=== PATIENT | female | born 1935 | race Caucasian/White ===

== ENCOUNTER 2016-07-16 09:36 | Outpatient (CLI) | payer MEDICARE | END 2016-07-16 09:37 | disposition home or self-care (01) | DX: Z12.31 Encounter for screening mammogram for malignant neoplasm of breast (principal) ==

== ENCOUNTER 2017-01-04 11:59 | Outpatient (CLI) | payer MEDICARE ==
--- NOTE | 2017-01-04 17:39 | CT Report ---
CT BRAIN WITHOUT CONTRAST: 01/04/2017 CLINICAL INDICATION: Dementia. Axial CT images of the brain were obtained without intravenous contrast. In accordance with CT protocol optimization, one or more of the following dose reduction techniques w ere utilized for this exam: automated exposure control, adjustment of mA and/or KV based on patient size, or use of iterative reconstructive technique. No previous CT is available for comparison. The ventricles and sulci demonstrate mild symmetric enlargement, compatible with atrophy. The basila r cisterns are patent. There is no evidence of hemorrhage, mass effect, or midline shift. The visua lized orbital contents and paranasal sinuses are unremarkable. IMPRESSION: MILD ATROPHY. NO EVIDENCE OF HEMORRHAGE OR MASS EFFECT. JOB #: [id number] EXT JOB #:[id number]
== END 2017-01-04 12:00 | disposition home or self-care (01) ==
LOC: DI 11:59
PROVIDERS: ATTEND Internal Medicine
DX: G31.9 Degenerative disease of nervous system, unspecified (principal); F03.90 Unspecified dementia, unspecified severity, without behavioral disturbance, psychotic disturbance, mood disturbance, and anxiety
CPT/HCPCS: 70450

== ENCOUNTER 2017-01-07 15:07 | Outpatient (CLI) | payer MEDICARE ==
[2017-01-07 16:23] LABS: THYROID STIMULATING HORMONE 2.63 uIU/mL (0.34-5.60)
[2017-01-07 16:34] LABS: FOLATE 5.82 ng/mL (5.90 - >24.8)
[2017-01-09 20:02] LABS: TREPONEMA AB IGG NEGATIVE
[2017-01-10 14:21] LABS: HOMOCYSTEINE 19.5 umol/L (<10.4)
== END 2017-01-07 15:08 | disposition home or self-care (01) ==
LOC: LAB 15:07
PROVIDERS: ATTEND Internal Medicine
DX: F03.90 Unspecified dementia, unspecified severity, without behavioral disturbance, psychotic disturbance, mood disturbance, and anxiety (principal)
CPT/HCPCS: 36415; 82607; 82746; 83090; 83921; 84443; 86780

== ENCOUNTER 2018-04-19 13:30 | Outpatient (CLI) | payer MEDICARE | END 2018-04-19 13:31 | disposition critical access hospital (66) | LOC: EMS 13:30 | PROVIDERS: ATTEND Surgery | DX: R41.82 Altered mental status, unspecified (principal) | CPT/HCPCS: A0425; A0433 ==

== ENCOUNTER 2018-04-19 13:57 | Emergency (ER) | payer MEDICARE ==
[2018-04-19] MEDS ORDERED: SODIUM CHLORIDE 0.9% 1,000 ML IV ONE ×2 (14:09→16:21)
[2018-04-19] MEDS ORDERED: IOVERSOL 320 100 ML VIAL IVP ONE ×2 (14:25→14:47)
--- NOTE | 2018-04-19 14:31 | XRAY Report ---
Reason: chest pain Procedure Date: 04/19/2018 Accession Number: [id number] / [id number] Procedure: XR - Chest 1 View X-Ray CPT Code: 31334 FULL RESULT: EXAM: CHEST RADIOGRAPHY EXAM DATE: 04/19/2018 02:09 PM. CLINICAL HISTORY: Chest pain. COMPARISON: None. TECHNIQUE: 1 view. FINDINGS: Lungs/Pleura: There is a mild linear opacity in the retrocardiac left lower lobe. There are several small scattered nodular opacities in the lateral right midlung. There is no consolidation. No pulmonary edema or pneumothorax. Mediastinum: The heart size is normal. The tip of the endotracheal tube is 5 cm above the stephanie. There is mild aortic arch atherosclerotic calcification. Other: None. IMPRESSION: 1. Endotracheal tube tip 5 cm above stephanie. No pneumothorax. 2. Mild nodular densities lateral right midlung. Differential diagnosis includes old granulomatous disease, bronchopneumonia or bronchiolitis, not excluding neoplasm. Consider follow-up imaging and/or comparison with previous chest x-rays to evaluate stability or persistence. RADIA
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
[2018-04-19 14:52] LABS: BASOPHILS % (AUTO) 0.1 %; LYMPHOCYTES # (AUTO) 0.3 10^3/uL (1.5-3.5); LYMPHOCYTES % (AUTO) 2.3 %; MEAN CORPUSCULAR HEMOGLOBIN 32.6 pg (27.0-31.0); MEAN CORPUSCULAR HGB CONC 33.7 g/dL (32.0-36.0); MEAN CORPUSCULAR VOLUME 96.8 fL (81.0-99.0); MONOCYTES # (AUTO) 0.8 10^3/uL (0.0-1.0); MONOCYTES % (AUTO) 6.9 %; NEUTROPHILS % (AUTO) 90.7 %; PLT - PLATELET COUNT 313 10^3/uL (130-450); RED BLOOD COUNT 3.68 10^6/uL (4.20-5.40); RED CELL DISTRIBUTION WIDTH 13.4 % (12.0-15.0); WHITE BLOOD COUNT 12.1 x10^3/uL (4.8-10.8)
--- NOTE | 2018-04-19 14:55 | CT Report ---
Reason: trauma Procedure Date: 04/19/2018 Accession Number: [id number] / [id number] Procedure: CT - Cervical Spine W/O CPT Code: FULL RESULT: EXAM: CT CERVICAL SPINE WITHOUT CONTRAST DATE: 04/19/2018 02:17 PM. HISTORY: Trauma, pain. COMPARISONS: HEAD W/O 01/04/2017 12:11 PM. TECHNIQUE: Thin-section axial images were acquired of the cervical spine without contrast. Post-processing: Coronal and sagittal reformats. Other: None. In accordance with CT protocol optimization, one or more of the following dose reduction techniques were utilized for this exam: automated exposure control, adjustment of mA and/or KV based on patient size, or use of iterative reconstructive technique. FINDINGS: Alignment: No scoliosis or spondylolisthesis. Bones: No fracture or bone lesion. Interspace Levels/Facets: Disk space narrowing at the C4-C5, C5-C6, and C6-C7. Other disk spaces preserved. Moderate generalized degenerative changes. Musculature: Unremarkable. Other: No prevertebral soft tissue swelling. Endotracheal tube in place. Calcified and noncalcified small granulomata in left apex. Otherwise clear visualized lung. IMPRESSION: Degenerative changes and other chronic findings. No acute disease. RADIA
[2018-04-19 14:57] LABS: INR 1.1 (0.8-1.2); PT - PROTHROMBIN TIME 12.6 secs (9.9-12.6)
[2018-04-19] MEDS ORDERED: PROPOFOL 1000 MG/100 ML 100 ML IV SCH (15:00)
[2018-04-19 15:08] LABS: MUDS CUTOFF CONCENTRATIONS CUTOFF CONC BELOW:
[2018-04-19 15:09] LABS: CARBON DIOXIDE - CO2 23 mmol/L (21-32); CHLORIDE 115 mmol/L (101-111); SODIUM 149 mmol/L (135-145)
[2018-04-19 15:10] LABS: ACETAMINOPHEN < 10 ug/mL (10-30); ALBUMIN 3.5 g/dL (3.2-5.5); ALBUMIN/GLOBULIN RATIO 1.1 (1.0-2.2); ALKALINE PHOSPHATASE 73 IU/L (42-121); ALT ALANINE AMINOTRANSFERASE 51 IU/L (10-60); AST ASPARTATE AMINOTRANSFERASE 94 IU/L (10-42); BILIRUBIN,TOTAL 1.3 mg/dL (0.2-1.0); BUN - BLOOD UREA NITROGEN 62 mg/dL (6-20); CALCIUM 9.6 mg/dL (8.5-10.3); GFR - MDRD 53 (>89); GLUCOSE 138 mg/dL (70-100); LIPASE 45 U/L (22-51); SALICYLATE < 6.0 mg/dL; TOTAL PROTEIN 6.8 g/dL (6.7-8.2); TROPONIN I 0.05 ng/mL (<0.49)
[2018-04-19 15:11] LABS: BILIRUBIN,URINE NEGATIVE (NEGATIVE); GLUCOSE, URINE (UA) NEGATIVE (NEGATIVE); KETONES,URINE (UA) 15 mg/dL (NEGATIVE); LEUKOCYTE ESTERASE, URINE NEGATIVE (NEGATIVE); NITRITE,URINE NEGATIVE (NEGATIVE); OCCULT BLOOD,URINE LARGE (NEGATIVE); PROTEIN,URINE 30 mg/dL (NEGATIVE); UROBILINOGEN,URINE 0.2 (NORMAL) E.U./dL (NORMAL)
[2018-04-19 15:12] LABS: CREATINE KINASE MB 80.9 ng/mL (0.6-6.3)
[2018-04-19 15:12] LABS: ABG BASE EXCESS -6.1 mmol/L (-2.0-3.0); ABG HCO3 20.1 mmol/L (22.0-26.0); ABG OXYGEN SATURATION 99 % (94-98); ABG PCO2 42 mmHg (34-45); ABG PO2 516 mmHg (80-100); ABG TCO2 21.4 MMOL/L (21.0-29.0)
[2018-04-19 15:13] LABS: ALLEN TEST POSITIVE
--- NOTE | 2018-04-19 15:13 | CT Report ---
Reason: trauma Procedure Date: 04/19/2018 Accession Number: [id number] / [id number] Procedure: CT - Abdomen/Pelvis W/ CPT Code: FULL RESULT: EXAM: CT CHEST, ABDOMEN AND PELVIS EXAM DATE: 04/19/2018 02:37 PM. CLINICAL HISTORY: No trauma, pain. COMPARISONS: CHEST W/ 04/19/2018 2:21 PM. TECHNIQUE: Routine helical CT imaging was performed through the chest, abdomen, and pelvis. IV contrast: OPTI 320 90mL. Enteric contrast: No. Reconstructions: Coronal and sagittal. In accordance with CT protocol optimization, one or more of the following dose reduction techniques were utilized for this exam: automated exposure control, adjustment of mA and/or KV based on patient size, or use of iterative reconstructive technique. FINDINGS: Lungs/Pleura: Diffuse emphysematous changes. Numerous bilateral pulmonary nodules ranging from tiny to as much as 11 mm in the right posterior base. These are generally peripheral, lower lobe more than upper lobe, noncalcified. A small calcification in the left apex may represent a granuloma. Atelectasis or scarring in left base. No effusion or pneumothorax. Mediastinum: Normal heart size. No pericardial effusion. At least 2 vessel coronary artery calcification. No lymphadenopathy. Intubated. Liver: Normal. Gallbladder/Bile Ducts: Subtle gallstone versus fold in the fundus. No ductal dilation. Spleen: Normal. Pancreas: Normal. Adrenal Glands: Normal. Kidneys: Moderate right hydronephrosis and hydroureter extending to the mid pelvis where there may be a small ureteral stone measuring about 2-3 mm. Right lower pole cyst. Otherwise unremarkable. Peritoneal Cavity/Bowel: Mild to moderate colonic diverticulosis. No free fluid, free air or adenopathy. No masses or acute inflammatory process. Unremarkable region of the appendix. Pelvic Organs: Normal. The bladder and visualized pelvic organs are within normal limits. Vasculature: No aneurysms or other significant abnormality. Bones: Degenerative changes. Comminuted fracture of the right upper ischial ramus with a subtle nondisplaced fracture of mid right lower ischial ramus. Other: None. IMPRESSION: 1. Right ischial fractures. 2. Moderate right hydronephrosis and hydroureter with possible distal ureteral stone measuring about 2-3 mm. 3. Mild to moderate diverticulosis. 4. Numerous pulmonary nodules. 3-6 month follow-up chest CT is recommended, per Fleischner Society guidelines. 5. Possible gallstone versus gallbladder fold or septation. RADIA
[2018-04-19 15:28] LABS: CLARITY,URINE CLEAR (CLEAR)
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
[2018-04-19 15:29] LABS: AMORPHOUS SEDIMENT,UR Few /LPF; AMPHETAMINE SCREEN,URINE NEGATIVE (NEGATIVE); BACTERIA,URINE Rare /HPF (None Seen); BENZODIAZEPINES SCREEN, URINE NEGATIVE (NEGATIVE); CASTS, URINE 6-10 Hyaline Casts /LPF; COCAINE SCREEN URINE NEGATIVE (NEGATIVE); METHADONE SCREEN, URINE NEGATIVE (NEGATIVE); METHAMPHETAMINES SCREEN, URINE NEGATIVE (NEGATIVE); OPIATE SCREEN, URINE NEGATIVE (NEGATIVE); OXYCODONE SCREEN, URINE NEGATIVE (NEGATIVE); PROPOXYPHENE SCREEN, URINE NEGATIVE (NEGATIVE); SQUAMOUS EPITHELIAL CELL,UR FEW Squamous (<= Few); TRICYCLIC ANTIDEPRESSANT,URINE NEGATIVE (NEGATIVE)
[2018-04-19] MEDS ORDERED: PROPOFOL 200 MG/20 ML VIAL IVP STA (15:57)
[2018-04-19 16:13] VITALS: BP 109/56
[2018-04-19 16:35] LABS: ABG BASE EXCESS -8.3 mmol/L (-2.0-3.0); ABG HCO3 17.3 mmol/L (22.0-26.0); ABG OXYGEN SATURATION 98 % (94-98); ABG PCO2 36 mmHg (34-45); ABG PO2 144 mmHg (80-100); ABG TCO2 18.4 MMOL/L (21.0-29.0); ALLEN TEST POSITIVE
[2018-04-19] MEDS ORDERED: SODIUM CHLORIDE INHALATION 3 ML NEB ONE (17:32)
== END 2018-04-19 17:00 | disposition short-term general hospital (02) ==
LOC: EDUNIT# → ED 13:57
DX: E86.0 Dehydration (principal); E87.0 Hyperosmolality and hypernatremia; S09.90XA Unspecified injury of head, initial encounter; S32.601A Unspecified fracture of right ischium, initial encounter for closed fracture; S30.0XXA Contusion of lower back and pelvis, initial encounter; S40.022A Contusion of left upper arm, initial encounter; S40.021A Contusion of right upper arm, initial encounter; S80.12XA Contusion of left lower leg, initial encounter; S80.11XA Contusion of right lower leg, initial encounter; S40.812A Abrasion of left upper arm, initial encounter; S40.811A Abrasion of right upper arm, initial encounter; W19.XXXA Unspecified fall, initial encounter; W22.8XXA Striking against or struck by other objects, initial encounter; R41.82 Altered mental status, unspecified; J96.00 Acute respiratory failure, unspecified whether with hypoxia or hypercapnia; M62.82 Rhabdomyolysis; K80.20 Calculus of gallbladder without cholecystitis without obstruction; R94.31 Abnormal electrocardiogram [ECG] [EKG]; F03.90 Unspecified dementia, unspecified severity, without behavioral disturbance, psychotic disturbance, mood disturbance, and anxiety
CPT/HCPCS: 36415; 36600; 51702; 70450; 71045; 71260; 72125; 74177; 80053; 81001; 82550; 82553; 82803; 83605; 83690; 84443; 84484; 85025; 85610; 85730; 93005; 94770; 99285; 99291; Q9967; 80306; 80307; 80320; 80329; 81003; 87086

== ENCOUNTER 2018-06-07 10:51 | Outpatient (CLI) | payer MEDICARE ==
--- NOTE | 2018-06-08 08:49 | DEXA Report ---
Reason: FRACTURE OF OTH PARTS OF PELVIS, INIT FOR CLOS FX Procedure Date: 06/07/2018 Accession Number: [id number] / [id number] Procedure: DEX - Dexa Spine and/or Hip CPT Code: FULL RESULT: EXAM: Dexa Spine and/or Hip DATE: 06/07/2018 11:15 AM CLINICAL HISTORY: FRACTURE OF OTH PARTS OF PELVIS, INIT FOR CLOS FX TECHNIQUE: Dual energy x-ray absorptiometry (DXA) was performed on a [employer] System. Regions measured are the AP Spine, femoral neck, and if needed forearm. COMPARISON: None. In accordance with the International Society for Clinical Densitometry (ISCD) guidelines, data from previous exams may be reanalyzed using current recommendations and techniques. This is done to allow a more accurate basis for comparison with the current study. FINDINGS: The data for the lumbar spine is as follows: BMD (g/cm/cm) T-SCORE Z-SCORE REGION L1 0.862 -2.2 0.4 L2 1.274 0.6 3.3 L3 1.343 1.2 3.8 L4 1.190 -0.1 2.6 TOTAL 1.167 -0.1 2.5 NOTE: All evaluable vertebrae are used for classification The data for the hip is as follows: BMD (g/cm/cm) T-SCORE Z-SCORE REGION Neck 0.838 -1.4 1.4 TOTAL 0.872 -1.1 1.7 NOTE: The femoral neck or total proximal femur, whichever is lowest, is used for classification. IMPRESSION: THE WHO CLASSIFICATION BASED ON THE INTERNATIONAL REFERENCE STANDARD IS OSTEOPENIA. THE FRACTURE RISK IS INCREASED. RECOMMENDATION: Patients with diagnosis of osteoporosis or osteopenia should have regular bone mineral density assessment. For those eligible for Medicare, routine testing is allowed once every 2 years. Testing frequency can be increased for patients who have rapidly progressing disease or for those who are receiving medical therapy to restore bone mass. COMMENT: World Health Organization (WHO) definitions for osteoporosis and osteopenia: NORMAL BMD: T-score at -1.0 or higher, fracture risk is low OSTEOPENIA BMD: T-score between -1.0 and -2.5, fracture risk is increased. OSTEOPOROSIS BMD: T-score at -2.5 or lower, fracture risk is high. National Osteoporosis Foundation recommends: 1. Obtain adequate dietary calcium (at least 1200 mg per day) and vitamin D (400-800 international units per day). 2. Participate, as appropriate, in regular weightbearing and muscle-strengthening exercise. 3. Avoid tobacco use and reduce alcohol and caffeine intake. 4. For more detailed information see the website at www.NOF.org.
== END 2018-06-07 10:52 | disposition home or self-care (01) ==
LOC: DI 10:51
PROVIDERS: ATTEND Internal Medicine
DX: M85.88 Other specified disorders of bone density and structure, other site (principal)
CPT/HCPCS: 77080